=== PATIENT | female | born 1940 | race Caucasian/White ===

== ENCOUNTER 2017-01-18 11:16 | Observation (INO) | payer MEDICARE ==
[~2017-01-18] VITALS: Ht 154.9 cm; Wt 67.2 kg
--- NOTE | ~2017-01-18 | CON ---
PATIENT'S NAME: ROSA LYNN [facility] AGE: 76 Y [address] ROOM: [place] [address] LOCATION: GPCU ADMIT DATE: 01/18/2017 Consultation DISCHARGE DATE: FAMILY PHYSICIAN: QAMAR TEIXEIRA MD ATTENDING PHYSICIAN: QAMAR TEIXEIRA REFERRING PHYSICIAN: Leo Rob MD REFERRING PHYSICIAN: aQmar Teixeira MD REASON FOR CONSULT: Dizziness and hypotension. HISTORY OF PRESENT ILLNESS: This is a 76-year-old female who reports she had been feeling well until the last couple of weeks and she has been a little more dizzy. She was seen at [facility] in the ER for complaints of dizziness and was treated for vertigo. She states that she feels dizzy all the time and when she turns her head it seems to be a little bit worse. She has not had any nausea or vomiting. She reports that earlier today, she had a little chest pain when she was really dizzy. Her blood pressures at Dr. Qamar Teixeira' office today showed a blood pressure of 102/68 and her heart rate was only 50. She denies any new shortness of breath, but she does carry history of COPD. There is no complaints of orthopnea, PND, or increased peripheral edema. She has not had any fall. She denies any palpitation. PAST MEDICAL HISTORY: 1. Coronary artery disease, CABG 09/2014. 2. Left bundle branch block without myocardial infarction. 3. Hyperlipidemia. 4. Essential hypertension. 5. History of heart failure. 6. Hypothyroidism. 7. Peripheral vascular disease, post right CEA. 8. Diabetes mellitus type 2. 9. Depression. 10. Mild cognitive impairment. 11. COPD, panlobular emphysema. 12. History of skin cancers. 13. Chronic kidney disease. PAST SURGICAL HISTORY: 1. Tonsillectomy 1960. 2. Ganglion cyst 1962, 1968, and 1971. 3. Hysterectomy with bilateral oophorectomy 1978. 4. Left heart catheterization 1978. PATIENT'S NAME: ROSA LYNN [facility] AGE: 76 Y [address] ROOM: [place] [address] LOCATION: GPCU ADMIT DATE: 01/18/2017 Consultation DISCHARGE DATE: FAMILY PHYSICIAN: QAMAR TEIXEIRA MD ATTENDING PHYSICIAN: QAMAR TEIXEIRA 5. Bilateral inguinal hernia repair 1978. 6. Left heart catheterization 1994. 7. Arthroscopy of the left knee 11/1998, 11/2002, and 03/2003. 8. Left heart catheterization in 1999. 9. Left heart catheterization 09/26/2014. 10. CABG with MORALES to the LAD and reverse saphenous vein graft to the diagonal, 1st obtuse marginal, and distal right coronary artery 10/01/2014. 11. Right CEA 12/2015. SOCIAL HISTORY: She is a former smoker. She has been smoke-free since June 2016. She had smoked 2 packs of cigarettes a day for 60 years. She is . She moved to [place] to be closer to her family. FAMILY HISTORY: Father at age 45 black lung disease. Mother at age 78 of myocardial infarction. She has 3 brothers, 6 sisters, and 1 daughter. Her daughter has a history of clotting issues. 3 of the brothers are of heart failure and alcoholism, 2 sisters at a young age, 1 sister has emphysema is 54, 1 sister diabetic and heart disease at age 80, another sister who is 80 with congestive heart failure, and a last sisters 82 has Alzheimer's. ALLERGIES: 1. PENICILLIN CAUSES A RASH. 2. LYRICA, NAUSEA. 3. TETRACYCLINE CAUSES A RASH. 4. LEVOFLOXACIN AND PENTAZOCINE ARE ALLERGY ALSO. MEDICATIONS: 1. Albuterol sulfate 2.5 mcg and 3 mL every 4 hours as needed and t.i.d. 2. Aricept 10 mg daily at bedtime. 3. Atorvastatin 40 mg once a day. 4. Gabapentin 300 mg 2 capsules 2 times a day. 5. Levothyroxine 75 mcg on an empty stomach. 6. Stiolto Respimat 2.5 mcg actuation. 7. Aerosol 2 puffs once a day. 8. Celexa 40 mg daily. 9. Aspirin 81 mg daily. 10. Klonopin 0.5 mg daily. 11. Fluticasone 27.5 mcg spray 1 puff nasally. 12. Triamcinolone acetonide 0.1% cream applied externally twice a day. 13. Antivert 25 mg 3 times a day. Medications that were discontinued today, PATIENT'S NAME: ROSA LYNN [facility] AGE: 76 Y [address] ROOM: [address] [place], [place] [address] LOCATION: [facility] ADMIT DATE: 01/18/2017 Consultation DISCHARGE DATE: FAMILY PHYSICIAN: QAMAR TEIXEIRA MD ATTENDING PHYSICIAN: QAMAR TEIXEIRA 1. Diovan 150 mg 0.5 mg at bedtime. 2. Bactrim DS 800/160 b.i.d. 3. Norvasc 10 mg once a day. PHYSICAL EXAMINATION: VITAL SIGNS: Her height is 5 feet 1 inch, her weight 66.9 kg, blood pressure is 146/76, heart rate is 50. SKIN: Warm, dry, and pink. HEENT: Pupils were equal. They did react briskly. NECK: Soft and supple. There is no lymphadenopathy. No carotid bruits. LUNGS: Sounds were clear to auscultation. CVS: Regular with a normal S1, S2 but bradycardic. ABDOMEN: Soft. Bowel sounds are present. EXTREMITIES: No peripheral edema. ASSESSMENT: 1. Chest pain. We are going to check cardiac enzymes. She is not having any further episodes of chest pain. We will review an EKG when it becomes available. 2. Dizziness with history of hypotension. We will check orthostatic blood pressures. Continue to monitor her on telemetry. 3. Sinus bradycardia. We did check a TSH, was 1.6 which was normal. We will continue to monitor her heart rates and avoid any offending medications. 4. Elevated hemoglobin A1c. She will be following with Dr. Qamar Teixeira for further evaluation of elevated blood sugars. 5. Dyslipidemia. She is on atorvastatin 40 mg every day. She will continue with her same medications. The assessment and plan, history of present illness, and physical exam are per Dr. Rob. Further recommendations will be forthcoming as information becomes available. MARIA D GOODMAN APRN FOR MD KALI WU/naseeml /[id number] d: 07/11/17 0001 t: 01/29/17 0903, CONSULTATION REPORT
--- NOTE | ~2017-01-18 | ESTC ---
Cardiac Perfusion Imaging Demographics Patient Name LEAH Renteria Gender Female Patient Number [id number] Race Visit Number [id number] Ethnicity [employer] ID Room Number G6323 Accession Number [id number] Height 61 inches Date of 1940 Weight 147 pounds Lluvia Gannon MD Interpreting Physician aDrron Bailey MD Date of study 01/19/2017 Supervising /JENP Marilynn ALEJANDRO Technologist Kieran Lucas Ordering Physician Stress system support technician Stress ECG Reading Marilynn Toussaint APRN Nurse Ruiz Frias Physician Medications Reviewed with Patient prior to Procedure. Procedure Procedure Type: Nuclear Stress Test:Exercise, Cardiolite Stress Test Procedure Start time: 01/19/2017 09:00 Indications: Angina. Risk Factors The patient risk factors include:prior CABG on 08/12/2015;peripheral arterial disease, former tobacco use, treated hypercholesterolemia, treated hypertension, family history of premature CAD appeared at age 35, diet treated diabetes mellitus, dyslipidemia and prior SD . Conclusions Summary Cardiolite SPECT images demonstrate homogenous uptake of radioactive tracer. No evidence of inducible reversible defect and no evidence of underlying fixed defect. Normal TID ratio Gated images demonstrate normal left ventricular systolic function without inducible wall motion abnormalities. LVEF is 77% Stress Protocols Resting ECG Sinus Bradyardia Pre-stress physical exam: Patient assessed by Abiodun ARSHAD prior to testing. Chest - CTA Cardio - RRR, S1, S2 Predicted HR: 145 bpm HR response: Appropriate BP response: Appropriate Reason for termination:Infusion complete ECG Findings Down-sloaping ST depression in II, V4, V5, V6. Arrhythmias No rhythm abnormality. Symptoms Shortness of breath. Chest Pressure Complications Procedure complication: None. Stress Interpretation Appropriate hemodynamic response to Lexiscan. Significant ST-T wave changes with Lexiscan. ECG portion is indeterminate for ischemia by diagnostic criteria. Did have ST depression but not to 1mm criteria. TWI at baseline. Will correlate with nuclear images. Imaging Results Summed scores - Summed stress score: 3 - Summed rest score: 3 - Summed difference score: 0 Stress ejection Ejection fraction:77 % EDV :75 ml ESV :17 ml Stroke volume :58 ml LV mass :100 gr Imaging Protocols Rest Stress Isotope:Tc99m Sestamibi IV Isotope: Tc99m Sestamibi IV Isotope dose:11.4 mCi Isotope dose:34.2 mCi Date:01/19/2017 07:37 Date:01/19/2017 09:44 Technique: SPECT Technique: Gated Supine SPECT Supine IV remains in place after procedure. Scan Time:45-60 minutes post Scan Time:45-60 minutes post injection injection Procedure Medications - Regadenoson (Lexiscan) 0.4 mg IV over 10-15 sec. I.V. 0.4 mg. Medications administered per verbal order and read back to physician prior to administration. Medical History Admission Data Admission date: 01/18/2017 Admission Time: 11:16 Hospital Status: Inpatient. Signatures dtt: Leo Rob (cardio) dtd: 01/19/17 0900 Physician Self Edit
--- NOTE | ~2017-01-18 | ECHO ---
Transthoracic Echocardiography Report (TTE) Demographics Patient Name ROSA LYNN Date of Study 01/18/2017 Patient Number [id number] Visit Number [id number] Date of 1940 Room Number G6323 Accession Number [id number] Gender Female Age 76 year(s) Referring Lluvia Gannon Digital Archivist Estee Lora RD, Physician RVT Physician Interpreting Darron Bailey MD Supervisor Rose Grading Physician Supervising Ordering Physician Darron Bailey MD, MD/MLP Nurse Stress Digital Forensics Examiner Conclusions Contractility Score Summary Normal Left Ventricular contractility was noted. Procedure Type of Study TTE procedure:2D Echocardiogram. Procedure Date Date: 01/18/2017 Start: 02:46 PM Study Location: [employer] Technical Quality: Adequate visualization Indications:Chest pain. Additional Indications:syncope Appropriate Use Criteria: 9 Patient Status: Routine Rhythm: Within normal limits HR: 55 bpm BP: 146/76 mmHg M-Mode/2D Measurements LV Diastolic Dimension: 4.28 cm LV Systolic Dimension: 2.71 cm LV Septum Diastolic: 0.83 cm LV PW Diastolic: 1.18 cm AO Root Dimension: 1.7 cm Cardiac Output: 5.12 l/min AV Cusp Separation: 0.8 cm RV Diastolic Dimension: 1.75 cm LA volume: 39 ml IVC Inspiration: 1.21 cm LVOT: 2.1 cm RV Base: 3.25 cm LVOT VTI: 26.9 cm RV Mid: 2.26 cm LV Stroke volume: 93.12 ml TAPSE: 1.3 cm TDI-S': 9.2 cm/s Doppler Measurements AV Peak Velocity: 2.3 m/s MV Peak E-Wave: 1.02 m/s AV Peak Gradient: 21.16 mmHg MV Peak A-Wave: 1.22 m/s AV Mean Gradient: 8 mmHg MV E/A Ratio: 0.84 LVOT Peak Velocity: 1.02 m/s MV P1/2t: 90 msec TR Gradient:32.72 mmHg PV Peak Velocity: 1.12 m/s Estimated RAP:3 mmHg PV Peak Gradient: 5.02 mmHg Estimated RVSP: 36 mmHg Estimated PASP: 35.72 mmHg E' Lateral Velocity: 0.08 m/s A' Lateral Velocity: 0.12 m/s MV E/E' Ratio: 11.8 Findings Left Ventricle Diastolic assessment reveals Grade I diastolic dysfunction. Normal left ventricular systolic function, LVEF is 60-65% Right Ventricle Normal right ventricle structure and function. Left Atrium Normal left atrial size. Right Atrium Normal right atrial size. Mitral Valve Mild mitral regurgitation by color Doppler. Aortic Valve The aortic valve is mildly sclerotic. Tricuspid Valve There is mild pulmonary hypertension. The pulmonary pressure (RVSP) is 36 mmHg. Mild tricuspid regurgitation by color Doppler. Pulmonic Valve Trivial pulmonic valve regurgitation by color Doppler. Pericardial Effusion No evidence of pericardial effusion. Miscellaneous Visualized portions of the aortic root and ascending aorta appear normal in size. Pleural Effusion No evidence of pleural effusion. Signature dtt: Leo Rob (cardio) dtd: 01/18/17 1446 Physician Self Edit
--- NOTE | 2017-01-18 12:29 | NUR ---
Pt is 76 y/o female admit for dizziness,near syncope,vertigo for . Pt alert and oriented x3. Allergies to PCN and lyrica. Red and yellow bracelets on. Hx vertigo,carotid endarterectomy,CABG,htn,hypercholest,COPD, SOB,bronchitis,diverticulitis,DM,nocturia,hypothyroid,depression. Pt resides at [facility]. States this am she had just finished eating breakfast and got a pain in center of chest,diaphoretic,and dizzy. She managed to make it back to her room and called her daughter to take her to DR manriquez.
[2017-01-18 13:21] LABS: BASOPHIL # 0.1 K/uL (0.0-0.2); BASOPHIL % 0.8 %; EOSINOPHIL # 0.1 K/uL (0.0-0.5); EOSINOPHIL % 2.2 %; HEMATOCRIT 37.1 % (33.0-46.0); HEMOGLOBIN 12.4 g/dL (10.0-15.0); IMMATURE GRANULOCYTE % 0.2 %; LYMPHOCYTE # 1.7 K/uL (0.8-4.0); LYMPHOCYTE % 26.5 %; MCH 29.9 pg (27.0-34.0); MCHC 33.4 gm/dL (32.0-36.5); MCV 89.4 fl (83.0-98.0); MONOCYTE # 0.6 K/uL (0.0-1.0); MONOCYTE % 8.5 %; NEUTROPHIL % 61.8 %; NRBC % 0 /100WBC (0-0.00); PLATELET COUNT 223 K/uL (150-450); RBC 4.15 M/uL (3.50-5.50); RDW-CV 12.6 % (11.9-14.6); WBC 6.5 K/uL (4.0-11.0)
[2017-01-18 13:29] LABS: INR - (THERAPEUTIC) 0.97 (0.92-1.07); PROTIME 10.2 SECONDS (9.8-11.4); PTT 25 SECONDS (25-32)
[2017-01-18 13:46] LABS: ALBUMIN 3.5 gm/dL (3.5-5.0); ALK PHOS 72 IU/L (33-138); ALT 44 IU/L (12-78); ANION GAP 11.2 (10.0-19.0); AST 28 IU/L (10-40); BLOOD UREA NITROGEN 24 mg/dL (6-24); CALCIUM 8.6 mg/dL (8.5-10.5); CHLORIDE 108 mMol/L (96-110); CO2 24 mMol/L (22-32); CPK 101 IU/L (21-215); ESTIMATED GFR (MDRD EQUATION) 54; MAGNESIUM 2.2 mg/dL (1.8-2.6); POTASSIUM 4.2 mMol/L (3.7-5.1); SODIUM 139 mMol/L (135-145); TOTAL BILIRUBIN 0.3 mg/dL (0.0-1.5)
[2017-01-18 13:50] LABS: BILIRUBIN URINE NEGATIVE (NEGATIVE); BLOOD URINE 10 /UL (NEGATIVE); COLOR URINE STRAW (YELLOW); GLUCOSE URINE NEGATIVE (NEGATIVE); KETONE URINE NEGATIVE (NEGATIVE); LEUKOCYTES URINE 500 /UL (NEGATIVE); NITRITE URINE NEGATIVE (NEGATIVE); PROTEIN URINE NEGATIVE (NEGATIVE); SPEC GRAVITY URINE 1.015 (1.003-1.035); TURBIDITY URINE 1+ (CLEAR); UROBILINOGEN URINE NORMAL (NORMAL)
[2017-01-18 14:03] LABS: WBC URINE 20-50 #/HPF (NEGATIVE)
[2017-01-18 14:04] LABS: BACTERIA URINE RARE (NEGATIVE); EPITHELIAL URINE NEGATIVE #/HPF (NEGATIVE); MUCUS URINE 1+ (NEGATIVE)
[2017-01-18] MEDS ORDERED: NEURONTIN300 MG PO ×2 (14:55→14:56)
[2017-01-18] MEDS ORDERED: LEVOTHROID(SYN75 MCG PO ×2 (14:57→14:58)
[2017-01-18] MEDS ORDERED: CELEXA40 MG PO (14:59)
[2017-01-18] MEDS ORDERED: ASPIR 8181 MG PO (15:00)
[2017-01-18] MEDS ORDERED: ARICEPT10 MG PO (15:02)
[2017-01-18] MEDS ORDERED: ALBUTEROL2.5 MG/31 INH (15:02)
[2017-01-18] MEDS ORDERED: LIPITOR40 MG PO (15:03)
[2017-01-18] MEDS ORDERED: TRIACET 0.1 CRE15 GM TOP (15:04)
[2017-01-18] MEDS ORDERED: STIOLTO RESPIMAT4 GM INH (15:04)
[2017-01-18] MEDS ORDERED: FLONASE 50 MCG/16 GM NOSE (15:05)
--- NOTE | 2017-01-18 16:59 | NUR ---
Significant Event: PATIENT IS ORIENTED TO PLACE AND PERSON, BUT FORGETFUL OF TIME. PATIENT IS BRADYCARDIC AND HYPERTENSIVE. PATIENT REPORTS FEELING DIZZY AND SHORT OF BREATH AT TIMES. PATIENT HAD ECHO, CHEST XRAY, AND EKG. DR. HUBER CONSULTED. TRENDING ENZYMES. FIRST SET NEGATIVE. NPO AFTER MIDNIGHT. Follow Up: CONTINUE WITH PLAN OF CARE.
[2017-01-18 18:58] LABS: CPK 98 IU/L (21-215)
[2017-01-19 01:10] LABS: CPK 86 IU/L (21-215)
--- NOTE | 2017-01-19 04:46 | NUR ---
patient alert and oriented to person and place. Disoriented to time. Orthostatic BP's negative. Bradycardic and hypertensive at times. Complaints of dizziness at rest and when up or moves head to fast. Transfers 1A GB. NPO since midnight. Has thick, brown vaginal discharge with itching. Has a cream for scabs on face. Can be impulsive at times, alarms at all time. ACHS accu checks. Cooperative with cares.
--- NOTE | 2017-01-19 12:15 | NUR ---
1115 Stopped by to see Peri but her RN Edgardo tells me that she is down getting a stress test right now. She also tells me that she will most likely go home tomorrow and have outpatient therapy follow up when she goes. Will come back by later today to try and see her to make sure she has no concerns about returning back to [place] when ready to do so. CM to continue to follow and assist.
--- NOTE | 2017-01-19 17:00 | NUR ---
Significant Event: VSS AND RA. AFEBRILE. DENIES PAIN. DIZZINESS WHEN STANDS UP AND AMBULATES. ORTHOSTATIC BPS (-). LEXISCAN STRESS TEST DONE TODAY, AWAITING RESULTS. PT/OT FOLLOWING AND WORKING WITH. UP TO SHOWER THIS AFTERNOON WITH STRIPPER SOFT PLASTIC. VOIDS WITH ADEQUATE UOP. REPOSITIONS SELF FREQUENTLY. Follow up: CONTINUE PLAN OF CARE; PROBABLE D/C TMRW PENDING STRESS TEST RESULTS; DR. DE LA CRUZ TO SIGN OUTPATIENT PHYS.THERAPY SCRIPT FOR HER AT D/C-SCRIPT ON CHART AND PHYS THERAPIST HAS MADE APPT ALREADY.
--- NOTE | 2017-01-20 05:19 | NUR ---
Significant Event: Forgetful of date/time, SBP 130-160s, HR 40-50s, RA, denies dizziness, ambulated 2 laps in hallway without SOB/dizziness, SBA, denies pain Follow up: back to [place] today
--- NOTE | 2017-01-20 10:45 | NUR ---
A&O-FORGETFUL. SBA. NO C/O DIZZINESS. SBP 150'S. HR 50'S. RA. AFEBRILE. NO C/O PAIN. VD PER BR. BM THIS AM. LS CLEAR. DC IV UPON DISMISSAL. INSTRUCTIONS REVIEWED WITH PT AND DAUGHTER. TAKEN TO LOBBY VIA WC TO PRIVATE VEHICLE HOME
== END 2017-01-20 10:49 | disposition disaster alternative care site (69) ==
LOC: GPCU 11:16
PROVIDERS: Nurse Practitioner Acute Care; ADMIT Family Medicine
DX: R42 Dizziness and giddiness (principal); F02.80 Dementia in other diseases classified elsewhere, unspecified severity, without behavioral disturbance, psychotic disturbance, mood disturbance, and anxiety; E78.00 Pure hypercholesterolemia, unspecified; F32.5 Major depressive disorder, single episode, in full remission; J44.9 Chronic obstructive pulmonary disease, unspecified; E03.9 Hypothyroidism, unspecified; R53.1 Weakness; M19.90 Unspecified osteoarthritis, unspecified site; G31.84 Mild cognitive impairment of uncertain or unknown etiology; E78.5 Hyperlipidemia, unspecified; I73.9 Peripheral vascular disease, unspecified; F32.9 Major depressive disorder, single episode, unspecified; E11.22 Type 2 diabetes mellitus with diabetic chronic kidney disease; I13.0 Hypertensive heart and chronic kidney disease with heart failure and stage 1 through stage 4 chronic kidney disease, or unspecified chronic kidney disease; N18.9 Chronic kidney disease, unspecified; I50.9 Heart failure, unspecified; I95.1 Orthostatic hypotension; Z87.891 Personal history of nicotine dependence; Z88.0 Allergy status to penicillin; Z95.1 Presence of aortocoronary bypass graft; Z98.890 Other specified postprocedural states; Z88.8 Allergy status to other drugs, medicaments and biological substances; I25.10 Atherosclerotic heart disease of native coronary artery without angina pectoris; Z90.710 Acquired absence of both cervix and uterus; Z88.1 Allergy status to other antibiotic agents
CPT/HCPCS: A9500; G0378; G0379; G8978; G8979; G8980; J1650; J2785

== ENCOUNTER 2017-02-01 21:06 | Emergency (ER) | payer MEDICARE ==
--- NOTE | ~2017-02-01 | ER ---
PATIENT'S NAME: ROSA LYNN [facility] AGE: 76 Y [address] ROOM: [place] [address] LOCATION: [facility] ADMIT DATE: 02/01/2017 ER/Outpatient Report DISCHARGE DATE: 02/01/2017 FAMILY PHYSICIAN: Sin Teixeira MD ATTENDING PHYSICIAN: Juan Banks Time of Arrival: 2108 hours. Time of Evaluation: 2108 hours. CHIEF COMPLAINT: Bit by neighbor's dog. HISTORY OF PRESENT ILLNESS: The patient is a 76-year-old female, who presents to the emergency department today after being bit by a neighbor's dog. It occurred 1 hour prior to arrival. She reports she was visiting her neighbor, and Slov[place] Al jumped and bit her. She denies any fall. No loss of consciousness. She reports the dog's shots are up-to-date. Her tetanus is not up-to-date. She has some mild pain at the site of injury. PAST MEDICAL HISTORY: Mild cognitive impairment, coronary artery disease, diabetes type 2, hypertension, chronic kidney disease stage 3, COPD, arthritis. PAST SURGICAL HISTORY: Quadruple bypass, carotid. SOCIAL HISTORY: The patient denies any tobacco, alcohol, or illicit drug use. ALLERGIES: TO PENICILLIN, LYRICA, AND TALWIN. MEDICATIONS: Please see list. PRIMARY CARE DOCTOR: Dr. Sin Teixeira. REVIEW OF SYSTEMS: All systems are reviewed by myself and are negative with the exception of those discussed in the HPI and past medical history. PHYSICAL EXAMINATION: VITAL SIGNS: Weight 67.9 kg, blood pressure 178/83, pulse 56, respiratory PATIENT'S NAME: ROSA LYNN [facility] AGE: 76 Y [address] ROOM: [place] [address] LOCATION: [facility] ADMIT DATE: 02/01/2017 ER/Outpatient Report DISCHARGE DATE: 02/01/2017 FAMILY PHYSICIAN: Sin Teixeira MD ATTENDING PHYSICIAN: Juan Banks rate 16, temperature 97.5, oxygen saturation 96% on room air. GENERAL: The patient is a 76-year-old female, who appears stated age, in no acute distress at this time. HEENT: Head: Normocephalic, atraumatic. Pupils are equal, round, and reactive to light. NECK: Supple. There is no nuchal rigidity. CARDIOVASCULAR: Bradycardic. No murmurs, rubs, or gallops. LUNGS: Clear to auscultation bilaterally. No wheezes, rales, or rhonchi. ABDOMEN: Soft, nontender, and nondistended. No rebound, rigidity, or guarding. MUSCULOSKELETAL: The patient moves all 4 extremities. No bony tenderness to palpation. SKIN: The patient has multiple areas of abrasions with a less than 1 cm laceration to the right forearm. It is gaping. Please see nursing documentation for diagram. LABORATORY DATA AND X-RAYS: None. IMPRESSION: 1. Multiple abrasions and lacerations from dog bite including a less than 1.5 cm laceration to right forearm, requiring simple repair. 2. Initial visit. EMERGENCY DEPARTMENT COURSE: The patient was brought back to the examination room. Seen and evaluated by myself. The risks and benefits were discussed with suture repair of the right arm laceration. The area was anesthetized with 1% lidocaine with epinephrine. Copious amounts of normal saline were utilized to irrigate the wound. There was no evidence of foreign body. A one 5-0 Ethilon was used in simple interrupted fashion to loosely approximate the wound. The patient apparently is taking doxycycline prophylactically once a day. We will increase this for 2 times a day for 10 days for prophylactic for this dog bite. The other wounds were irrigated. I have discussed wound care with the patient. I have recommended close followup with Dr. Teixeira in 7 to 10 days for suture removal. I have discussed return to care instructions including worsening symptoms, erythema, fever, purulent drainage, or any other concerns to return to the emergency department as soon as possible. The patient is agreeable without further questions at this time. DISPOSITION,: The patient discharged home in good condition. PATIENT'S NAME: ROSA LYNN [facility] AGE: 76 Y [address] ROOM: [place], [place] [address] LOCATION: [facility] ADMIT DATE: 02/01/2017 ER/Outpatient Report DISCHARGE DATE: 02/01/2017 FAMILY PHYSICIAN: Sin Teixeira MD ATTENDING PHYSICIAN: Juan Banks DO SUBHASH MCKEON/naseeml /[id number] d: 02/02/17 0120 t: 02/04/17 0644, OUTPATIENT REPORT
[~2017-02-01 21:06] MED LIST: ALBUTEROL2.5 MG/31 INH; ARICEPT10 MG PO; ASPIR 8181 MG PO; CELEXA40 MG PO; FLONASE 50 MCG/16 GM NOSE; LEVOTHROID(SYN75 MCG PO; LIPITOR40 MG PO; NEURONTIN300 MG PO; STIOLTO RESPIMAT4 GM INH; TRIACET 0.1 CRE15 GM TOP
== END 2017-02-01 21:57 | disposition disaster alternative care site (69) ==
LOC: GACC 21:06
PROC: 0HQDXZZ Repair Right Lower Arm Skin, External Approach (ICD-10-PCS; principal; 2017-02-01)
DX: S51.811A Laceration without foreign body of right forearm, initial encounter (principal); I12.9 Hypertensive chronic kidney disease with stage 1 through stage 4 chronic kidney disease, or unspecified chronic kidney disease; G31.84 Mild cognitive impairment of uncertain or unknown etiology; E11.22 Type 2 diabetes mellitus with diabetic chronic kidney disease; N18.3 Chronic kidney disease, stage 3 (moderate); E11.40 Type 2 diabetes mellitus with diabetic neuropathy, unspecified; I25.10 Atherosclerotic heart disease of native coronary artery without angina pectoris; J44.9 Chronic obstructive pulmonary disease, unspecified; Z98.890 Other specified postprocedural states; Z88.0 Allergy status to penicillin; Z88.8 Allergy status to other drugs, medicaments and biological substances; Z23 Encounter for immunization; Z79.82 Long term (current) use of aspirin; Z95.1 Presence of aortocoronary bypass graft; Z79.899 Other long term (current) drug therapy; Z88.5 Allergy status to narcotic agent; W54.0XXA Bitten by dog, initial encounter